=== PATIENT | female | born 1990 | race Caucasian/White ===

== ENCOUNTER → 2017-09-11 | Outpatient (CLI) | payer MEDICAID ==
[~2017-09-11] MED LIST: HYDR-3812 PO; IBUP-1773 PO
--- NOTE | 2017-09-11 12:08 | Diagnostic Imaging Report ---
INDICATION: Initial ultrasound for dates and anatomy. TECHNIQUE: Multiple real-time grayscale images were obtained over the gravid uterus. COMPARISON: None FINDINGS: There is a single live intrauterine fetus. Currently breech presentation. Placenta anterior and not low. Amniotic fluid index is normal. heart rate 153 beats per minute. anatomical survey is limited as the spine is not well demonstrated nor is the umbilical cord insertion well demonstrated. Other anatomical features appear normal. Biometrical measurements are as follows: Biparietal 5.56 cm, age 23 weeks 0 days. Head circumference 20.75 cm, age 22 weeks 6 days. Abdominal circumference 16.71 cm, age 21 weeks 6 days. Femur length 3.75 cm, age 22 weeks 0 days. Sonographic estimate age: 22 weeks 3 days. Sonographic estimated date of delivery: 01-12-18. Estimated Weight: 466 gm (+/- 68 gm). LMP percentile: 18%. heart rate: 153 beats per minute. number: 1 of 1. IMPRESSION: 1. There is a 22-week 3-day live intrauterine by current sonographic measurements. Sonographic EDC of 01/12/2018. 2. Slightly limited anatomical survey. spine and umbilical cord insertion not well demonstrated. 3. Estimated weight is in the 18th percentile. Dictated by: Dictated on workstation # [id number]
== END ==
LOC: RAD 10:07
PROVIDERS: ATTEND Family Medicine
DX: Z34.92 Encounter for supervision of normal pregnancy, unspecified, second trimester (principal); Z3A.22 22 weeks gestation of pregnancy
CPT/HCPCS: 76805

== ENCOUNTER → 2017-10-23 | Outpatient (CLI) | payer MEDICAID ==
[~2017-10-23] MED LIST changes: +ACHD5005 PO; -HYDR-3812 PO
--- NOTE | 2017-10-23 13:24 | Diagnostic Imaging Report ---
INDICATION: Follow-up cord insertion and spine. TECHNIQUE: Multiple real-time grayscale images were obtained over the gravid uterus. COMPARISON: 09/11/2017. FINDINGS: The previous OB ultrasound exam performed on 09/11/2017 noted a single live fetus of approximately 22 weeks 3 days gestation +/- 2 weeks. There are no abnormalities identified, but the spine and umbilical cord insertion were not well imaged. On this study, the fetus is again visualized. The fetus is cephalic in presentation and heart motion is noted with a rate of 142 bpm recorded. The cord insertion is identified on this exam and it appears to be within normal limits; however, the spine is difficult to evaluate due to the position. I would recommend that a short-term (2-4 weeks) follow-up exam be performed for a more sensitive evaluation of the spine. No other abnormality is identified. The growth parameters are not obtained for this exam. The placenta is anterior and there is no previa. The amniotic fluid volume is 10.1 cm (normal 8-22 cm). IMPRESSION: 1. There is a single live fetus of approximately 28 weeks 3 days gestation +/- 2 weeks. The EDC remains 01/12/2018. 2. There are no abnormalities identified, but the spine is still not optimally imaged. Recommendations as above. Dictated by: Dictated on workstation # [id number]
== END ==
LOC: RAD 09:30
PROVIDERS: ATTEND Family Medicine
DX: O43.123 Velamentous insertion of umbilical cord, third trimester (principal); Z3A.28 28 weeks gestation of pregnancy
CPT/HCPCS: 76816

== ENCOUNTER 2018-01-07 05:41 | Inpatient (IN) | payer MEDICAID ==
[2018-01-07] VITALS (35 sets, daily range): BP systolic 91–138; BP diastolic 52–80
[~2018-01-07] VITALS: Ht 154.9 cm; Wt 66.7 kg
[2018-01-07] MEDS ORDERED: D5 LR IV SOLUTION 1,000 ML IV SCH (05:54)
[2018-01-07] MEDS ORDERED: CATHETER FLUSH 10 ML SYR IV SCH (06:00)
[2018-01-07] MEDS ORDERED: MINERAL OIL CONCENTRATE 99.9% 15 ML UDC TOP PRN (06:00)
[2018-01-07 07:05] LABS: BASOPHILS % (AUTO) 0 % (0-10); EOSINOPHILS # (AUTO) 0.1 10^3/uL (0.0-0.3); EOSINOPHILS % (AUTO) 1 % (0-10); HEMATOCRIT 34 % (35-52); HEMOGLOBIN 11.5 G/DL (11.5-16.0); LYMPHOCYTES # (AUTO) 2.7 X 10^3 (1.0-4.0); LYMPHOCYTES % (AUTO) 31 % (12-44); MEAN CORPUSCULAR HEMOGLOBIN 31 PG (25-34); MEAN CORPUSCULAR HGB CONC 34 G/DL (32-36); MEAN CORPUSCULAR VOLUME 91 FL (80-99); MEAN PLATELET VOLUME 10.5 FL (7.4-10.4); MONOCYTES # (AUTO) 1.2 X 10^3 (0.0-1.0); MONOCYTES % (AUTO) 13 % (0-12); NEUTROPHILS # (AUTO) 4.8 X 10^3 (1.8-7.8); NEUTROPHILS % (AUTO) 55 % (42-75); PLATELET COUNT 268 10^3/uL (130-400); RED BLOOD COUNT 3.75 10^6/uL (4.35-5.85); RED CELL DISTRIBUTION WIDTH 13.6 % (10.0-14.5); WHITE BLOOD COUNT 8.8 10^3/uL (4.3-11.0)
[2018-01-07] MEDS ORDERED: OXYTOCIN/NORMAL SALINE 500 ML IV SCH ×2 (07:18→16:22)
--- NOTE | 2018-01-07 07:23 | History & Physical-OB ---
OB - Chief Complaint & HPI Date/Time Date of Admission: Date of Admission: Jan 07, 2018 at 05:41 Time Seen by Provider: 07:10 Chief Complaint/History OB-Reason for Admission/Chief: Induction of Labor Hx : 3 Hx Para: 2 Expected Date of Delivery: Jan 12, 2018 Gestational Age in Weeks: 39 Gestational Age in Days: 2 Admission Nurse Assessment Rev: Yes History of Labs GBS negative Allergies and Home Medications Allergies Coded Allergies: No Known Drug Allergies (Verified Allergy, Unknown, 07/12/08) Home Medications Hydrocodone Bit/Acetaminophen 1 Each Tablet, 1-2 TAB PO Q4H PRN for PAIN Prescribed by: MECHE FRITZ on 12/25/15 0742 Ibuprofen 600 Mg Tablet, 600 MG PO Q6H Prescribed by: MECHE FRITZ on 12/25/15 0742 Patient Home Medication List Home Medication List Reviewed: Yes OB - History Hx of Present Care: Yes Ultrasounds: Normal mid trimester US Obstetrical Complications: None Medical Complications: None Obstetrical History Hx Termination: No Hx Multiple Gestation: No Hx Stillbirth: No Hx Complication: No Hx Induced Hypertens: No Hx Maternal Gestational Diabet: No Delivery History Hx Dystocia: No Hx Large For Gestational Age I: No Hx Small for Gestational Age I: No Hx Section: No Hx Vaginal Delivery Post C-Sec: No Hx Blood Disorders: No Adverse Rxn to Tranfusion: No Patient Past Medical History No chronic medical problems Immunizations Tetanus Booster (TDap): Unknown OB - Admission Exam Physical Exam HEENT: Moist Membranes Heart: Rhythm Normal Lungs: Clear Abdomen: Gravid Reflexes: Normal Cervical Dilatation: 2cm Effacement: 50% Station: -3 Membranes: Intact Heart Rate: 140's Accelerations: Accelerations Present Decelerations: No Decelerations Short Term Variability: Present Vp Client Services Variability: Average (6-25) Contractions on Admission: >10 Minutes Apart Intensity: Mild Velasco Scoring Tool (Modified) Dilation (cm): 1-2cm (1) Effacement (%): 31-51% (1) Descent/Station: -3 (0) Cervix Consistency: Soft (2) Cervix Position: Posterior (0) Add 1 point for: Each previous vaginal delivery (1) Velasco Score: 6 Labs Laboratory Tests Test 01/07/18 06:45 Range/Units White Blood Count 8.8 4.3-11.0 10^3/uL Red Blood Count 3.75 L 4.35-5.85 10^6/uL Hemoglobin 11.5 11.5-16.0 G/DL Hematocrit 34 L 35-52 % Mean Corpuscular Volume 91 80-99 FL Mean Corpuscular Hemoglobin 31 25-34 PG Mean Corpuscular Hemoglobin Concent 34 32-36 G/DL Red Cell Distribution Width 13.6 10.0-14.5 % Platelet Count 268 130-400 10^3/uL Mean Platelet Volume 10.5 H 7.4-10.4 FL Neutrophils (%) (Auto) 55 42-75 % Lymphocytes (%) (Auto) 31 12-44 % Monocytes (%) (Auto) 13 H 0-12 % Eosinophils (%) (Auto) 1 0-10 % Basophils (%) (Auto) 0 0-10 % Neutrophils # (Auto) 4.8 1.8-7.8 X 10^3 Lymphocytes # (Auto) 2.7 1.0-4.0 X 10^3 Monocytes # (Auto) 1.2 H 0.0-1.0 X 10^3 Eosinophils # (Auto) 0.1 0.0-0.3 10^3/uL Basophils # (Auto) 0.0 0.0-0.1 10^3/uL OB - Assessment/Plan/Diagnosis Assessment Assessment: induction of labor Admission Dx 1. IUP at 39wks Admission Status: Inpatient Order (span 2 midnights) Reason for Inpatient Admission: Labor and delivery Plan Plan: Induction Induction Method: AROM Other Plan -no epidural desired- -Stadol for pain control MECHE FRITZ MD Jan 07, 2018 07:23
[2018-01-07] MEDS: BUTORPHANOL INJ 2 MG/ML (STADOL) VIAL IV PRN ×2 (12:40→14:59)
--- NOTE | 2018-01-07 16:26 | OB Labor & Delivery Record ---
L&D History Date of Service Date of Service: Jan 07, 2018 History Expected Date of Delivery: Jan 12, 2018 Gestational Age in Weeks: 39 Hx : 3 Hx Para: 3 Complications Events: Routine care Operative Indications (Cesarea: N/A-Vaginal Delivery Intrapartal Events: None L&D Stage1 Stage One Onset of Labor - Date: Jan 07, 2018 Onset of Labor - Time: 07:10 Monitors and Tracing Monitor Mode: Internal Heart Rate: 130 Monitor Accelerations: Uniform Monitor Decelerations: Variable Station: -2 Fci Variability: Average (6-10) Short Term Variability: Present Presentation: Vertex Vital Signs VS - Last 72 Hours, by Label 01/07/18 01/07/18 01/07/18 01/07/18 06:18 07:22 08:45 09:00 Temp 97.6 97.8 Pulse 85 74 74 75 Resp 18 18 18 18 B/P (MAP) 107/64 (78) 105/66 (79) 101/61 (74) 101/64 (76) O2 Delivery Room Air Room Air Room Air Room Air 01/07/18 01/07/18 01/07/18 01/07/18 09:15 09:30 09:45 10:00 Pulse 81 84 77 86 Resp 18 18 18 18 B/P (MAP) 103/64 (77) 107/78 (88) 110/68 (82) 102/64 (77) O2 Delivery Room Air Room Air Room Air Room Air 01/07/18 01/07/18 01/07/18 01/07/18 10:15 10:30 10:45 11:00 Temp 98.3 Pulse 86 77 79 79 Resp 18 18 18 18 B/P (MAP) 106/64 (78) 106/63 (77) 94/60 (71) 91/52 (65) O2 Delivery Room Air Room Air Room Air Room Air 01/07/18 01/07/18 01/07/18 01/07/18 11:15 11:30 11:45 12:00 Temp 98.1 Pulse 73 76 75 77 Resp 18 18 18 18 B/P (MAP) 105/57 (73) 102/64 (77) 102/66 (78) 100/57 (71) O2 Delivery Room Air Room Air Room Air Room Air 401/07/18 01/07/18 01/07/18 12:15 12:30 12:45 13:00 Pulse 74 71 74 72 Resp 18 18 B/P (MAP) 101/59 (73) 105/58 (74) 99/54 (69) 97/52 (67) O2 Delivery Room Air Room Air Room Air Room Air Signs of Distress by FHT Signs of Distress no Rupture of Membranes Spontaneous Ruture of Membrane: No Amniotic Membrane Rupture Time: 0710 Amniotic Membrane Fluid Desc.: Clear Induction/Anesthesia Medications Stadol x2 L&D Stage2 Stage Two Stage II Date: Jan 07, 2018 Stage II Time: 16:00 Monitors and Tracing Monitor Mode: Internal Heart Rate: 130 Monitor Accelerations: Uniform Monitor Decelerations: Variable [employer]ivist [employer] History Variability: Average (6-10) Position: Left Occiput Anterior Presentation: Vertex Signs of Distress by FHT Signs of Distress no Cord Descript/Complications Cord Vessel Description: 3 Vessels Delivery Type Infant Delivery Method: Spontaneous Vaginal Anterior Shoulder: Left Episiotomy/Perineal Laceration Laceraction(s)/Extensions: No Condition of Delivery 1 minute Comment: 8 5 minute Comment: 9 Condition of Condition of Infant: Living Exam: No Observed Abnormalities Resuscitation Resuscitation: N/A - Spontaneous Resp L&D Stage3 Stage Three Stage III Date: Jan 07, 2018 Stage III Time: 16:04 Pictocin Pitocin Administration mu/min: 8 Pitocin ml/hr: 8 Pitocin Administration Comment: Pitocin started at 2 mu/min per order Placenta Delivery Placenta Delivery: Spontaneous Delivery Summary Summary Estimated blood loss (mL): 150 Condition of Delivery Examined: Cervix Examined Post Hemorrhage: No Intervention Required none MECHE FRITZ MD Jan 07, 2018 16:25
[2018-01-07] MEDS ORDERED: BENZOCAINE/MENTHOL (DERMOPLAST) 56 ML CAN TP PRN (16:30)
[2018-01-07] MEDS ORDERED: WITCH HAZEL(TUCKS) 40 EA JAR TOP PRN (16:30)
[2018-01-07] MEDS ORDERED: MEASLES,MUMPS,RUBELLA 1 EA INJ SQ ONE (16:30)
[2018-01-07] MEDS ORDERED: TETANUS,DIPTH,PERTUSS P/F (BOOSTRIX) 0.5 ML VIAL IM ONE (16:30)
[2018-01-07] MEDS ORDERED: IBUPROFEN 600 MG (MOTRIN) TAB PO ONE (18:32)
[2018-01-07] MEDS: IBUPROFEN 600 MG (MOTRIN) TAB PO SCH (18:36)
[2018-01-07] MEDS: CATHETER FLUSH 10 ML SYR IV SCH (22:02)
[2018-01-08] MEDS ORDERED: IBUPROFEN 600 MG (MOTRIN) TAB PO ONE ×2 (00:22→05:32)
[2018-01-08] MEDS: IBUPROFEN 600 MG (MOTRIN) TAB PO SCH ×4 (00:29→17:13)
[2018-01-08 04:20] VITALS: BP 94/62
[2018-01-08] MEDS: CATHETER FLUSH 10 ML SYR IV SCH ×2 (05:35→12:42)
[2018-01-08 05:43] LABS: BASOPHILS % (AUTO) 0 % (0-10); EOSINOPHILS # (AUTO) 0.1 10^3/uL (0.0-0.3); EOSINOPHILS % (AUTO) 0 % (0-10); HEMATOCRIT 33 % (35-52); HEMOGLOBIN 10.9 G/DL (11.5-16.0); LYMPHOCYTES % (AUTO) 18 % (12-44); MEAN CORPUSCULAR HEMOGLOBIN 30 PG (25-34); MEAN CORPUSCULAR HGB CONC 34 G/DL (32-36); MEAN CORPUSCULAR VOLUME 91 FL (80-99); MEAN PLATELET VOLUME 10.7 FL (7.4-10.4); MONOCYTES # (AUTO) 2.1 X 10^3 (0.0-1.0); MONOCYTES % (AUTO) 13 % (0-12); NEUTROPHILS # (AUTO) 11.4 X 10^3 (1.8-7.8); NEUTROPHILS % (AUTO) 69 % (42-75); PLATELET COUNT 269 10^3/uL (130-400); RED BLOOD COUNT 3.59 10^6/uL (4.35-5.85); RED CELL DISTRIBUTION WIDTH 13.5 % (10.0-14.5); WHITE BLOOD COUNT 16.6 10^3/uL (4.3-11.0)
[2018-01-08] MEDS ORDERED: PRENATAL VITAMIN 1 EA TAB PO SCH (07:00)
[2018-01-08 08:00] VITALS: BP 98/64
[2018-01-08 12:00] VITALS: BP 97/54
[2018-01-08 16:00] VITALS: BP 98/54
--- NOTE | 2018-01-08 16:41 | Discharge Summary ---
Diagnosis/Chief Complaint Date of Admission Jan 07, 2018 at 05:41 Date of Discharge January 08, 2018 Discharge Date: Jan 08, 2018 Discharge Time: 17:00 Admission Diagnosis Admission Diagnosis 1. IUP at 39 weeks gestation Discharge Diagnosis 1. IUP at 39 weeks gestation Reason Hospital Visit 27 yo G3T3 admitted for induction of labor January 07, 2018 at 39w2d gestation. Her EDC is January 12, 2018. GBS status negative. Discharge Summary-OBS Procedures 1. Spontaneous vaginal delivery Discharge Physical Examination Allergies: Coded Allergies: No Known Drug Allergies (Verified Allergy, Unknown, 07/12/08) Vitals & I&Os Vital Signs Date Time Temp Pulse Resp B/P (MAP) Pulse Ox O2 Delivery O2 Flow Rate FiO2 01/08/18 16:00 98.1 78 16 98/54 (69) 99 Room Air General Appearance: No Acute Distress Respiratory: Clear to Auscultation Cardiovascular: Regular Rate Abdominal: Soft (with uterus firm) Hospital Course Patient underwent AROM in the am of January 07, 2018. scalp electrode was placed. She did not require epidural. She did receive Stadol for pain management during the course of labor. She ultimately required Pitocin augmentation. She went on eventually to deliver a term viable female at 1600 on January 07, 2018. Infant received Apgars of 8 at 1 minute and 9 at 5 minutes. Patient underwent routine care orders. She had no complications. She tolerated regular diet. She was ambulatory and did not develop any chest pain or shortness of breath. There was no leg swelling or leg tenderness. Her initial hemoglobin on admission was 11.5 and the day after delivery was 10.9. Patient was felt ready for dismissal after 24 hours and she was released to home during the p.m. of January 08, 2018. All questions answered. Discharge Instructions to patient/family Please see electronic discharge instructions given to patient. Discharge Medications Reviewed and agree with Discharge Medication list on patient's Discharge Instruction sheet Clinical Quality Measures DVT/VTE Risk/Contraindication: Risk Factor Score Per Nursin RFS Level Per Nursing on Admit: 1=Low/No VTE PPX MECHE FRITZ MD Jan 08, 2018 16:41
--- NOTE | 2018-01-08 16:43 | Discharge Inst-Women's Service ---
Discharge Inst-Women's Serv Consults/Follow Up Additional Follow Up: Yes (Dr Fritz in 6 weeks.) Activity Activity: Activity as Tolerated Driving Instructions: You May Drive Nothing Inside Vagina: No [place] (for 4 weeks.) Diet Discharge Diet: Regular Diet Return to The Hospital For: as below Symptoms to Report to : Bleeding Excessive, Pain Increased, Fever Over 101 Degrees F, Vaginal Bleeding Increase, Vaginal Discharge Foul For Any Problems or Questions: Contact Your Physician MECHE FRITZ MD Jan 08, 2018 16:43
== END 2018-01-08 19:03 | disposition home or self-care (01) | DRG 775 ==
LOC: LDRP 05:41 → 3RD 12:27 → LDRP 12:27
PROVIDERS: ADMIT Family Medicine; ATTEND Family Medicine
PROC: 10E0XZZ Delivery of Products of Conception, External Approach (ICD-10-PCS; principal; 2018-01-07)
PROC: 10907ZC Drainage of Amniotic Fluid, Therapeutic from Products of Conception, Via Natural or Artificial Opening (ICD-10-PCS; 2018-01-07)
DX: O80 Encounter for full-term uncomplicated delivery (principal); Z3A.39 39 weeks gestation of pregnancy; Z37.0 Single live birth
CPT/HCPCS: 36415; 85025; 86850; 86900; 86901

== ENCOUNTER → 2019-08-17 | Outpatient (CLI) | payer MEDICAID ==
--- NOTE | 2019-08-17 17:06 | Diagnostic Imaging Report ---
PROCEDURE: US OB single fetus <14 wks. TECHNIQUE: Multiple real-time grayscale images were obtained over the gravid uterus in various projections. INDICATION: Assessment of dating. FINDINGS: There is a estrada intrauterine gestation present. pole is present with crown-rump length of 2 cm. Embryonic cardiac activity is present with a rate of 179 bpm. There is minimal ana-gestational fluid which could represent implantation bleed. Gestational sac morphology is unremarkable. No maternal adnexal region abnormality is identified. IMPRESSION: 1. Intrauterine gestation with estimated age of 8 weeks and 5 days indicating sonographic EDC of 03/23/2020. 2. cardiac activity is present with a rate of 179 bpm without significant complication identified. Dictated by: Dictated on workstation # [id number]
== END ==
LOC: RAD 15:11
PROVIDERS: ATTEND Family Medicine
DX: Z34.91 Encounter for supervision of normal pregnancy, unspecified, first trimester (principal); Z3A.08 8 weeks gestation of pregnancy
CPT/HCPCS: 76801

== ENCOUNTER → 2019-11-07 | Outpatient (CLI) | payer MEDICAID ==
--- NOTE | 2019-11-07 17:12 | Diagnostic Imaging Report ---
INDICATION: , anatomic survey. TECHNIQUE: Multiple real-time grayscale images were obtained over the gravid uterus. COMPARISON: 08/17/2019. FINDINGS: There is a single live intrauterine gestation in cephalic presentation. Cervix measures 4.1 cm in length with no evidence of funneling. The placenta is posterior without evidence of previa. Biometric measurements are given below. The maternal adnexa are not seen. The face is seen and the nose and lips are seen. The cerebellum and lateral ventricles are seen. The upper and lower spine is seen. The diaphragm is seen. A four-chamber heart is seen. The stomach is seen. Cord insertion is seen. Kidneys are seen. Bladder is seen. Bilateral lower extremities are seen. A three-vessel cord is seen. The bilateral upper extremities are seen. heart rate measures 146 BPM. The amniotic fluid is subjectively normal. Biometrical measurements are as follows: Biparietal 4.71 cm, age 20 weeks 2 days. Head circumference 17.99 cm, age 20 weeks 3 days. Abdominal circumference 15.75 cm, age 21 weeks 0 days. Femur length 3.44 cm, age 20 weeks 6 days. Sonographic estimate age: 20 weeks 5 days. Sonographic estimated date of delivery: 03/21/2020. Estimated Weight: 378 gm (+/- 55 gm). LMP percentile: 66%. heart rate: 146 beats per minute. number: 1 of 1. IMPRESSION: 1. Single live intrauterine gestation measuring at 20 weeks and 5 days which is within range of the clinical dates. 2. Anatomic survey, as described above. No abnormalities are identified. Dictated by: Dictated on workstation # [id number]
== END ==
LOC: RAD 09:45
PROVIDERS: ATTEND Family Medicine
DX: Z34.92 Encounter for supervision of normal pregnancy, unspecified, second trimester (principal); Z3A.20 20 weeks gestation of pregnancy
CPT/HCPCS: 76805

== ENCOUNTER 2020-03-19 06:00 | Inpatient (IN) | payer MEDICAID ==
[2020-03-19] VITALS (35 sets, daily range): BP systolic 81–133; BP diastolic 48–81
[~2020-03-19] VITALS: Ht 154.9 cm; Wt 70.4 kg
[~2020-03-19 06:00] MED LIST changes: +D5 LR IV SOLUTION 1,000 ML IV ONE
[2020-03-19] MEDS ORDERED: D5 LR IV SOLUTION 1,000 ML IV SCH (06:04)
--- NOTE | 2020-03-19 06:07 | NUR ---
SURINDER LIGHT presented to unit via ambulation from ED, accompanied by s.o. for induction of labor. SURINDER LIGHT weighed, gowned, voided, and to bed. EFHM and TOCO applied, VS taken. SURINDER LIGHT oriented to bed controls, call light, TV, heat, and A/C controls.
--- OUTSIDE RECORDS SUMMARY | 2020-03-19 06:17 | XMS REPORT ---
Author Author Leanne Contreras Doctor Organization [facility] Address Unknown Phone Unavailable Care Team Providers Care Clean Room Assembler Name Role Phone Migration, Doctor Unavailable Unavailable PROBLEMS Type Condition ICD9-CM Code IRL93-BS Code Onset Dates Condition S tatus SNOMED Code Problem Urinary tract infection, site not specified 599.0 Active 10967230 Problem Acute maxillary sinusitis 461.0 Acti ve 46126594 Problem Contact with or exposure to venereal diseases V01.6 Active 216310403 Problem Abdominal pain, unspecified site 789.00 Active 01092540 Problem Diarrhea 787.91 Active [id number] ALLERGIES No Information ENCOUNTERS Encounter Location Date Diagnosis [facility] [id number] [place] [id number] Apr, [facility] [id number] [place] [address], [place] [id number] Mar, Chlamydia contact Z20.2 and Acute vagini tis N76.0 [facility] [id number] [place] [address], [place] [id number] Jan, Sore throat J02.9 and Fever, unspecified fever cause R50.9 [facility] [id number] [place] [id number] Jan, [facility] [address] [facility] [id number] [address] [place] [phone] Jan, [facility] [id number] [place] [id number] Dec, [facility] [id number] [place] [phone] Dec, [facility] [id number] [place] [id number] Nov, [facility] [id number] [place] [phone] Nov, [facility] [address] [facility] [id number] [address] [place] [phone] Jul, [facility] [address] [facility] [id number] [place], [place] [id number] Jun, [facility] [address] [facility] [id number] [address] [place] [phone] Jun, [facility] [address] [facility] [id number] [address] [place] [phone] Apr, [facility] [address] [facility] [id number] [address] [place] [phone] Apr, [facility] [address] [facility] [address] [id number] [place], [place] [id number] Apr, [facility] [address] [facility] [id number] [place], [place] [id number] Apr, [facility] [address] [facility] [id number] [address] [place] [phone] Apr, [facility] [address] [facility] [id number] [address] [place] [phone] Apr, IMMUNIZATIONS No Known Immunizations SOCIAL HISTORY Never Assessed REASON FOR VISIT [facility] PLAN OF CARE VITAL SIGNS MEDICATIONS Unknown Medications RESULTS No Results PROCEDURES No Known procedures INSTRUCTIONS MEDICATIONS ADMINISTERED No Known Medications MEDICAL (GENERAL) HISTORY Type Description Date Surgical History BMT
--- OUTSIDE RECORDS SUMMARY | 2020-03-19 06:17 | XMS REPORT ---
Author Author Leanne Wells [facility] Address [address] [place] [address] Care Team Providers Care Candy Decorator Name Role Phone EDUIN Wells Unavailable PROBLEMS Type Condition ICD9-CM Code VYP78-AR Code Onset Dates Condition S tatus SNOMED Code Problem Urinary tract infection, site not specified 599.0 Active 47506733 Problem Acute maxillary sinusitis 461.0 Acti ve 16256111 Problem Contact with or exposure to venereal diseases V01.6 Active 954161518 Problem Abdominal pain, unspecified site 789.00 Active 10342434 Problem Diarrhea 787.91 Active 60956089 ALLERGIES No Information ENCOUNTERS Encounter Location Date Diagnosis [facility] [id number] [place] [address], [place] [id number] Apr, [place] [id number] [place] [address], [place] [id number] Mar, Chlamydia contact Z20.2 and Acute vagini tis N76.0 [facility] [id number] [place] [address], [place] [id number] Jan, Sore throat J02.9 and Fever, unspecified fever cause R50.9 [facility] [address] [facility] [id number] [address] [place] [phone] Jan, [facility] [address] [facility] [id number] [address] [place] [phone] Jan, [place] [place] [id number] [place] [address], [place] [id number] Dec, [facility] [address] [facility] [id number] [address] [place] [phone] Dec, [facility] [address] [id number] [place] [id number] Nov, [facility] [address] [id number] [address] [place] [phone] Nov, [facility] [address] [id number] [address] [place] [phone] Jul, [facility] [address] [id number] [place] [id number] Jun, [facility] [address] [id number] [address] [place] [phone] Jun, [facility] [address] [id number] [address] [place] [phone] Apr, [facility] [address] [id number] [address] [place] [phone] Apr, [facility] [address] [id number] [place] [id number] Apr, [facility] [address] [id number] [place] [id number] Apr, [facility] [address] [id number] [address] [place] [phone] Apr, [facility] [address] [id number] [address] [place] [phone] Apr, IMMUNIZATIONS No Known Immunizations SOCIAL HISTORY Never Assessed REASON FOR VISIT PLAN OF CARE VITAL SIGNS Height 62 in 2014-07-03 Weight 125.4 lbs 2014-07-03 Temperature 125.4 degrees Fahrenheit 2014-07-03 Heart Rate 70 bpm 2014-07-03 Respiratory Rate 12 2014-07-03 Blood pressure systolic 102 mmHg 2014-07-03 Blood pressure diastolic 60 mmHg 2014-07-03 MEDICATIONS Unknown Medications RESULTS No Results PROCEDURES Procedure Date Ordered Result Body Site URINE CULTURE/COLONY COUNT Jul 03, 2014 URINALYSIS, AUTO, W/O SCOPE Jul 03, 2014 INSTRUCTIONS MEDICATIONS ADMINISTERED No Known Medications MEDICAL (GENERAL) HISTORY Type Description Date Surgical History BMT
--- OUTSIDE RECORDS SUMMARY | 2020-03-19 06:17 | XMS REPORT ---
Author Author Leanne Wells [facility] Address [address] [place] [address] Care Team Providers Care Resist Coater Developer Name Role Phone EDUIN Wells Unavailable PROBLEMS Type Condition ICD9-CM Code RHX43-BR Code Onset Dates Condition S tatus SNOMED Code Problem Urinary tract infection, site not specified 599.0 Active 39339474 Problem Acute maxillary sinusitis 461.0 Acti ve 04007004 Problem Contact with or exposure to venereal diseases V01.6 Active 504468737 Problem Abdominal pain, unspecified site 789.00 Active 40195423 Problem Diarrhea 787.91 Active [id number] ALLERGIES No Information ENCOUNTERS Encounter Location Date Diagnosis [place] [address] [phone] Aug, [place] [address] [phone] Jul, [facility] [id number] [place] [address], [place] [id number] Apr, [place] [id number] [place] [address], [place] [id number] Mar, Chlamydia contact Z20.2 and Acute vagini tis N76.0 [facility] [address] [id number] [place] [address], [place] [id number] Jan, Sore throat J02.9 and Fever, unspecified fever cause R50.9 [place] [address] [place] [id number] [place] [phone] 14 Jan, 2015 [place] [address] [place] [id number] [place] [phone] Jan, [address], [place] [id number] Dec, [facility] [address] [id number] [address] [place] [phone] Dec, [facility] [address] [id number] [place] [id number] Nov, [facility] [address] [id number] [address] [place] [phone] Nov, [facility] [address] [id number] [address] [place] [phone] Jul, [facility] [address] [id number] [place] [phone] Jun, [facility] [address] [id number] [address] [place] [phone] Jun, [facility] [address] [facility] [id number] [address] [place] [phone] Apr, [facility] [address] [facility] [id number] [address] [place] [phone] Apr, [facility] [address] [id number] [place] [id number] Apr, [facility] [address] [id number] [place] [id number] Apr, [facility] [address] [facility] [id number] [address] [place] [phone] Apr, [facility] [address] [facility] [id number] [address] [place] [phone] Apr, IMMUNIZATIONS No Known Immunizations SOCIAL HISTORY Never Assessed REASON FOR VISIT PLAN OF CARE VITAL SIGNS Height 62 in 2014-04-10 Weight 126 lbs 2014-04-10 Temperature 98.6 degrees Fahrenheit 2014-04-10 Heart Rate 80 bpm 2014-04-10 Respiratory Rate 12 2014-04-10 Blood pressure systolic 102 mmHg 2014-04-10 Blood pressure diastolic 60 mmHg 2014-04-10 MEDICATIONS Unknown Medications RESULTS No Results PROCEDURES Procedure Date Ordered Result Body Site CHYLMD TRACH, DNA, AMP PROBE April 10, 2014 IMMUNOASSAY,INFECTIOUS AGENT April 10, 2014 INSTRUCTIONS MEDICATIONS ADMINISTERED No Known Medications MEDICAL (GENERAL) HISTORY Type Description Date Surgical History BMT
--- OUTSIDE RECORDS SUMMARY | 2020-03-19 06:17 | XMS REPORT | Continuity of Care Document ---
Author Organization Unknown Address Unknown Phone Unavailable Allergies Active Description Code Type Severity Reaction Onset Reported/Identified Relationship to Patient Clinical Status Yes No Known Drug Allergies [id number] Drug Allergy Unknown N/A 07/12/2008 Medications There is no data. Problems Date Dx Coded Attending Type Code Diagnosis Diagnosed By 04/10/2014 BARRERA BROWN DO 787.91 DIARRHEA 04/10/2014 BARRERA BROWN DO 789.00 ABDOMINAL PAIN UNSPECIFIED SITE 04/10/2014 BARRERA BROWN DO V01.6 CONTACT WITH OR EXPOSURE TO VENEREAL DISEASES 04/10/2014 BARRERA BROWN DO K 787.91 DIARRHEA 04/10/2014 BARRERA BROWN DO 789.00 ABDOMINAL PAIN UNSPECIFIED SITE 04/10/2014 BARRERA BROWN DO V01.6 CONTACT WITH OR EXPOSURE TO VENEREAL DISEASES 07/03/2014 BARRERA BROWN DO K 599.0 URINARY TRACT INFECTION SITE NOT SPECIFIED 10/26/2015 MECHE FRITZ MD, Ot Z34. 90 10/26/2015 MECHE FRITZ MD, Ot Z34. 90 10/26/2015 MECHE FRITZ MD Ot Z36 10/26/2015 MECHE FRITZ MD Ot Z36 11/09/2015 MECHE FRITZ MD Ot Z36 11/16/2015 MECHE FRITZ MD Ot Z34. 90 12/24/2015 MECHE FRITZ MD, Ot Z34. 90 12/24/2015 MECHE FRITZ MD Ot Z36 12/25/2015 MECHE FRITZ MD Ot O71. 82 OTHER SPECIFIED TRAUMA TO PERINEUM AND V 12/25/2015 MECHE FRITZ MD Ot Z37. 0 SINGLE LIVE 12/25/2015 LAM SILVERMAN, MECHE Myles Ot Z3A. 39 39 WEEKS GESTATION OF 09/11/2017 MECHE FRITZ MD, Ot Z34. 90 ENCNTR FOR SUPRVSN OF NORMAL , 09/11/2017 MECHE FRITZ MD Ot Z36 ENCOUNTER FOR SCREENING OF MOT 09/14/2017 MECHE FRITZ MD, Ot Z34. 92 ENCNTR FOR SUPRVSN OF NORMAL PREG, UNSP, 09/14/2017 MECHE FRITZ MD Ot Z3A. 22 22 WEEKS GESTATION OF 09/29/2017 MECHE FRITZ MD, Ot Z34. 92 ENCNTR FOR SUPRVSN OF NORMAL PREG, UNSP, 09/29/2017 MECHE FRITZ MD Ot Z3A. 22 22 WEEKS GESTATION OF 10/23/2017 MECHE FRITZ MD Ot Z34. 90 ENCNTR FOR SUPRVSN OF NORMAL , 10/23/2017 MECHE FRITZ MD Ot Z36 ENCOUNTER FOR SCREENING OF MOT 10/23/2017 MECHE FRITZ MD, Ot Z34. 92 ENCNTR FOR SUPRVSN OF NORMAL PREG, UNSP, 10/23/2017 MECHE FRITZ MD Ot Z3A. 22 22 WEEKS GESTATION OF 10/26/2017 MECHE FRITZ MD Ot O43.123 VELAMENTOUS INSERTION OF UMBILICAL CORD, 10/26/2017 MECHE FRITZ MD, Ot Z3A. 28 28 WEEKS GESTATION OF 11/06/2017 MECHE FRITZ MD Ot O43.123 VELAMENTOUS INSERTION OF UMBILICAL CORD, 11/06/2017 MECHE FRITZ MD Ot Z3A. 28 28 WEEKS GESTATION OF 01/07/2018 MECHE FRITZ MD Ot Z34. 90 ENCNTR FOR SUPRVSN OF NORMAL , 01/07/2018 MECHE FRITZ MD Ot Z36 ENCOUNTER FOR SCREENING OF MOT 01/07/2018 MECHE FRITZ MD Ot Z34. 92 ENCNTR FOR SUPRVSN OF NORMAL PREG, UNSP, 01/07/2018 MECHE FRITZ MD Ot Z3A. 22 22 WEEKS GESTATION OF 01/07/2018 MECHE FRITZ MD Ot O43.123 VELAMENTOUS INSERTION OF UMBILICAL CORD, 01/07/2018 MECHE FRITZ MD Ot Z3A. 28 28 WEEKS GESTATION OF 01/08/2018 MECHE FRITZ MD Ot O80 ENCOUNTER FOR FULL-TERM UNCOMPLICATED DE 01/08/2018 MECHE FRITZ MD, Ot Z37. 0 SINGLE LIVE 01/08/2018 MECHE FRITZ MD, Ot Z3A. 39 39 WEEKS GESTATION OF 08/17/2019 MECHE FRITZ MD, Ot Z34. 90 ENCNTR FOR SUPRVSN OF NORMAL , 08/17/2019 MECHE FRITZ MD, Ot Z36 ENCOUNTER FOR SCREENING OF MOT 08/17/2019 MECHE FRITZ MD, Ot Z34. 92 ENCNTR FOR SUPRVSN OF NORMAL PREG, UNSP, 08/17/2019 MECHE FRITZ MD, Ot Z3A. 22 22 WEEKS GESTATION OF 08/17/2019 MECHE FRITZ MD, Ot O43.123 VELAMENTOUS INSERTION OF UMBILICAL CORD, 08/17/2019 MECHE FRITZ MD, Ot Z3A. 28 28 WEEKS GESTATION OF 08/19/2019 MECHE FRITZ MD, Ot Z34. 91 ENCNTR FOR SUPRVSN OF NORMAL PREG, UNSP, 08/19/2019 MECHE FRITZ MD, Ot Z3A. 08 8 WEEKS GESTATION OF 10/10/2019 MECHE FRITZ MD, Ot Z34. 91 ENCNTR FOR SUPRVSN OF NORMAL PREG, UNSP, 10/10/2019 MECHE FRITZ MD, Ot Z3A. 08 8 WEEKS GESTATION OF 11/04/2019 MECHE FRITZ MD Ot Z34. 90 ENCNTR FOR SUPRVSN OF NORMAL , 11/04/2019 MECHE FRITZ MD Ot Z36 ENCOUNTER FOR SCREENING OF MOT 11/04/2019 MECHE FRITZ MD, Ot Z34. 92 ENCNTR FOR SUPRVSN OF NORMAL PREG, UNSP, 11/04/2019 MECHE FRITZ MD, Ot Z3A. 22 22 WEEKS GESTATION OF 11/04/2019 MECHE FRITZ MD, Ot O43.123 VELAMENTOUS INSERTION OF UMBILICAL CORD, 11/04/2019 MECHE FRITZ MD, Ot Z3A. 28 28 WEEKS GESTATION OF 11/04/2019 MECHE FRITZ MD, Ot Z34. 91 ENCNTR FOR SUPRVSN OF NORMAL PREG, UNSP, 11/04/2019 LAM SILVERMAN, MECHE Myles Ot Z3A. 08 8 WEEKS GESTATION OF Procedures Code Description [place] [address] H PY BOBBY (IN-HOUSE) 04/10/2014 45730 GC/C HLAM URINE (STATE) 04/10/2014 19098 UA L RICKY DIP 07/03/2014 58755 CULT URE URINE 07/03/2014 [id number] RE PAIR VULVA, EXTERNAL APPROACH 12/24/2015 15E2TAY DE LIVERY OF PRODUCTS OF CONCEPTION, EXTE 12/24/2015 [id number] IN TRODUCE OF OTH THERAP SUBST INTO FEM R 12/24/[address] KNOTT OF AMNIOTIC [place], THERAP FROM POC 01/07/2018 54K1BLR DE LIVERY OF PRODUCTS OF CONCEPTION, EXTE 01/07/2018 Results Test Result Range Complete blood count (CBC) with automate d white blood cell (WBC) differential - 01/07/18 06:45 Blood leukocytes automated count (number/volume) 8.8 10*3/uL 4.3-11.0 Blood erythrocytes automated count (number/volume) 3.75 10*6/uL 4.35-5.85 Venous blood hemoglobin measurement (mass/volume) 11.5 g/dL 11.5-16.0 Blood hematocrit (volume fraction) 34 % 35-52 Automated erythrocyte mean corpuscular volume 91 [ foz_us] 80-99 Automated erythrocyte mean corpuscular h emoglobin (mass per erythrocyte) 31 pg 25-34 Automated erythrocyte mean corpuscular h emoglobin concentration measurement (mass/volume) 34 g/dL 32-36 Automated erythrocyte distribution width ratio 13. 6 % 10.0- 14.5 Automated blood platelet count (count/volume) 268 10*3/uL 130-400 Automated blood platelet mean volume measurement 10.5 [foz_us] 7.4-10.4 Automated blood neutrophils/100 leukocytes 55 % 42-75 Automated blood lymphocytes/100 leukocytes 31 % 12-44 Blood monocytes/100 leukocytes 13 % 0-12 Automated blood eosinophils/100 leukocytes 1 % 0-10 Automated blood basophils/100 leukocytes 0 % 0-10 Blood neutrophils automated count (number/volume) 4.8 10*3 1.8-7.8 Blood lymphocytes automated count (number/volume) 2.7 10*3 1.0-4.0 Blood monocytes automated count (number/volume) 1. 2 10*3 0.0-1.0 Automated eosinophil count 0.1 10*3/uL 0 .0-0.3 Automated blood basophil count (count/volume) 0.0 10*3/uL 0.0-0.1 Blood type T Indirect antibody screen pa scottie - 01/07/18 06:45 ABO+Rh group AP NRG Transfusion band number [id number] NRG Blood group antibody screen NEGATIVE NR G Complete blood count (CBC) with automate d white blood cell (WBC) differential - 01/08/18 05:25 Blood leukocytes automated count (number/volume) 16.6 10*3/uL 4.3-11.0 Blood erythrocytes automated count (number/volume) 3.59 10*6/uL 4.35-5.85 Venous blood hemoglobin measurement (mass/volume) 10.9 g/dL 11.5-16.0 Blood hematocrit (volume fraction) 33 % 35-52 Automated erythrocyte mean corpuscular volume 91 [ foz_us] 80-99 Automated erythrocyte mean corpuscular h emoglobin (mass per erythrocyte) 30 pg 25-34 Automated erythrocyte mean corpuscular h emoglobin concentration measurement (mass/volume) 34 g/dL 32-36 Automated erythrocyte distribution width ratio 13. 5 % 10.0- 14.5 Automated blood platelet count (count/volume) 269 10*3/uL 130-400 Automated blood platelet mean volume measurement 10.7 [foz_us] 7.4-10.4 Automated blood neutrophils/100 leukocytes 69 % 42-75 Automated blood lymphocytes/100 leukocytes 18 % 12-44 Blood monocytes/100 leukocytes 13 % 0-12 Automated blood eosinophils/100 leukocytes 0 % 0-10 Automated blood basophils/100 leukocytes 0 % 0-10 Blood neutrophils automated count (number/volume) 11.4 10*3 1.8-7.8 Blood lymphocytes automated count (number/volume) 3.0 10*3 1.0-4.0 Blood monocytes automated count (number/volume) 2. 1 10*3 0.0-1.0 Automated eosinophil count 0.1 10*3/uL 0 .0-0.3 Automated blood basophil count (count/volume) 0.0 10*3/uL 0.0-0.1 Encounters ACCT No. Visit Date/Time Discharge Status Pt. Type Provider Facility Loc./Unit Complaint [id number] 07/03/2014 16:42:00 07/03/2014 23:59: 59 CLS Outpatient BARRERA BROWN DO [id number] 04/10/2014 12:22:00 04/10/2014 23:59: 59 CLS Outpatient BARRERA BROWN DO [id number] 11/07/2019 09:45:00 020 23:59:59 CLS Outpatient MECHE FRITZ MD Via [facility] RAD SURVEY [id number] 08/17/2019 15:11:00 019 23:59:59 CLS Outpatient MECHE FRITZ MD Via [facility] RAD DATING [id number] 01/07/2018 05:41:00 018 19:03:00 DIS Inpatient MECHE FRITZ MD [facility] LDRP INDUCTION [id number] 10/23/2017 09:30:00 018 23:59:59 CLS Outpatient MECHE FRITZ MD [facility] RAD FU US [id number] 09/11/2017 10:07:00 017 23:59:59 CLS Outpatient MECHE FRITZ MD Via [facility] FIRST SCAN DATE AND WARREN VEY [id number] 12/23/2015 18:41:00 016 13:40:00 DIS Inpatient MECHE FRITZ MD Via [facility] LDRP INDUCTION [id number] 09/14/2015 12:09:00 015 23:59:59 CLS Outpatient MECHE FRITZ MD Via [facility] RAD SURVEY [id number] 07/18/2015 13:32:00 015 23:59:59 CLS Outpatient MECHE FRITZ MD Via [facility] RAD DATING [id number] 03/19/2020 06:00:00 P HAWK FRITZ MD, MECHE CHAMPAGNE
--- OUTSIDE RECORDS SUMMARY | 2020-03-19 06:17 | XMS REPORT ---
Author Author Leanne Wells [facility] Address [address] [place] [address] Care Team Providers Care Fifth Grade Teacher Name Role Phone EDUIN Wells Unavailable PROBLEMS Type Condition ICD9-CM Code WVQ41-LU Code Onset Dates Condition S tatus SNOMED Code Problem Urinary tract infection, site not specified 599.0 Active 91581506 Problem Acute maxillary sinusitis 461.0 Acti ve 05895638 Problem Contact with or exposure to venereal diseases V01.6 Active 746942816 Problem Abdominal pain, unspecified site 789.00 Active 71866278 Problem Diarrhea 787.91 Active 13148707 ALLERGIES No Information ENCOUNTERS Encounter Location Date Diagnosis [facility] [address] [place] [id number] [place] [address], [place] [id number] Apr, [place] [address] [place] [id number] [place] [address], [place] [id number] Mar, Chlamydia contact Z20.2 and Acute vagini tis N76.0 [facility] [address] [place] [id number] [place] [address], [place] [id number] Jan, Sore throat J02.9 and Fever, unspecified fever cause R50.9 [facility] [address] [facility] [id number] [address] [place] [phone] Jan, [facility] [address] [facility] [id number] [address] [place] [phone] Jan, [place] [id number] [place] [address], [place] [id number] Dec, [facility] [address] [facility] [id number] [address] [place] [phone] Dec, [place] [id number] [place] [address], [place] [id number] Nov, [facility] [address] [id number] [address] [place] [phone] Nov, [facility] [address] [id number] [address] [place] [phone] Jul, [facility] [address] [id number] [place] [id number] Jun, [facility] [address] [id number] [address] [place] [phone] Jun, [facility] [address] [id number] [address] [place] [phone] Apr, [facility] [address] [id number] [address] [place] [phone] Apr, [facility] [address] [id number] [place] [id number] Apr, [facility] [address] [id number] [place] [id number] Apr, [facility] [address] [id number] [address] [place] [phone] Apr, [facility] [address] [id number] [address] [place] [phone] Apr, IMMUNIZATIONS No Known Immunizations SOCIAL HISTORY Never Assessed REASON FOR VISIT PLAN OF CARE VITAL SIGNS Height 62 in 2014-11-23 Weight 116.3 lbs 2014-11-23 Temperature 98.5 degrees Fahrenheit 2014-11-23 Heart Rate 72 bpm 2014-11-23 Respiratory Rate 16 2014-11-23 Blood pressure systolic 120 mmHg 2014-11-23 Blood pressure diastolic 70 mmHg 2014-11-23 MEDICATIONS Unknown Medications RESULTS No Results PROCEDURES No Known procedures INSTRUCTIONS MEDICATIONS ADMINISTERED No Known Medications MEDICAL (GENERAL) HISTORY Type Description Date Surgical History BMT
--- OUTSIDE RECORDS SUMMARY | 2020-03-19 06:17 | XMS REPORT ---
Author Author Leanne MCKINNEY [facility] Address [address] [place] [address] Care Team Providers Care Infection Prevention Specialist Name Role Phone SONJA MCKINNEY Unavailable PROBLEMS Type Condition ICD9-CM Code [id number] Code Onset Dates Condition S tatus SNOMED Code Problem Acute maxillary sinusitis 461.0 Acti ve 99755916 Problem Urinary tract infection, site not specified 599.0 Active 24318611 Problem Contact with or exposure to venereal diseases V01.6 Active 674352109 Problem Diarrhea 787.91 Active 92299931 Problem Abdominal pain, unspecified site 789.00 Active 91551924 ALLERGIES No Known Allergies ENCOUNTERS Encounter Location Date Diagnosis [place] [id number] [place] [address], [place] [id number] Apr, [place] [id number] [place] [address], [place] [id number] Mar, Chlamydia contact Z20.2 and Acute vagini tis N76.0 [place] [id number] [place] [address], [place] [id number] Jan, Sore throat J02.9 and Fever, unspecified fever cause R50.9 [facility] [address] [place] [id number] [place] [phone] Jan, [facility] [address] [place] [id number] [address] [place] [phone] Jan, [facility] [address] [place] [id number] [place] [address], [place] [id number] Dec, [facility] [address] [place] [id number] [address] [place] [phone] Dec, [place] [id number] [place] [address], [place] [id number] Nov, [facility] [address] [id number] [address] [place] [phone] Nov, [facility] [address] [id number] [address] [place] [phone] Jul, [facility] [address] [id number] [place] [id number] Jun, [facility] [address] [id number] [address] [place] [phone] Jun, [facility] [address] [id number] [address] [place] [phone] Apr, [facility] [address] [id number] [address] [place] [phone] Apr, [facility] [address] [id number] [place] [id number] Apr, [facility] [address] [id number] [place] [id number] Apr, [facility] [address] [id number] [address] [place] [phone] Apr, [facility] [address] [id number] [address] [place] [phone] Apr, IMMUNIZATIONS No Known Immunizations SOCIAL HISTORY Never Assessed REASON FOR VISIT STD CHECK, partner tested positive for chylamida Shilpa RN PLAN OF CARE Activity Details Follow Up prn Reason: VITAL SIGNS Height 62 in 2017-03-30 Weight 119.8 lbs 2017-03-30 Temperature 99.0 degrees Fahrenheit 2017-03-30 Heart Rate 94 bpm 2017-03-30 Respiratory Rate 18 2017-03-30 BMI 21.91 kg/m2 2017-03-30 Blood pressure systolic 100 mmHg 2017-03-30 Blood pressure diastolic 60 mmHg 2017-03-30 MEDICATIONS Medication Instructions Dosage Frequency Start Date End Date Duration S jitendraus Metronidazole 500 mg Orally Twice a day 1 tablet 12h 26 Sukhi, 20 17 3 Apr, 2017 07 days Active RESULTS Name Result Date Reference Range TRICHOMONAS (IN HOUSE) 2017-03-30 TRICHOMONAS negative Control positive Lot # [id number] Exp date 02/19 BACTERIAL VAGINOSIS (IN HOUSE) 2017-03-30 RESULTS positive Control positive Lot # [id number] Exp date 11/24 GC/CHLAM URINE (STATE) 2017-03-30 CHLAMYDIA GC PROCEDURES Procedure Date Ordered Result Body Site LAB NOT BILLED BY [facility] March 30, 2017 No Charge March 30, 2017 CASTILLO VAG, DNA, DIR PROBE March 30, 2017 INSTRUCTIONS MEDICATIONS ADMINISTERED No Known Medications MEDICAL (GENERAL) HISTORY Type Description Date Surgical History BMT
--- OUTSIDE RECORDS SUMMARY | 2020-03-19 06:17 | XMS REPORT ---
Author Author Leanne Contreras Doctor Organization [facility] Address Unknown Phone Unavailable Care Team Providers Care Oven Tender Name Role Phone Migration, Doctor Unavailable Unavailable PROBLEMS Type Condition ICD9-CM Code SGN82-RE Code Onset Dates Condition S tatus SNOMED Code Problem Urinary tract infection, site not specified 599.0 Active 68156707 Problem Acute maxillary sinusitis 461.0 Acti ve 99923270 Problem Contact with or exposure to venereal diseases V01.6 Active 542142938 Problem Abdominal pain, unspecified site 789.00 Active 98205382 Problem Diarrhea 787.91 Active 84903258 ALLERGIES No Information ENCOUNTERS Encounter Location Date Diagnosis [facility] [id number] [place] [id number] Apr, [facility] [id number] [place] [address], [place] [id number] Mar, Chlamydia contact Z20.2 and Acute vagini tis N76.0 [facility] [id number] [place] [address], [place] [id number] Jan, Sore throat J02.9 and Fever, unspecified fever cause R50.9 [facility] [address] [place] [address] [id number] [place] [phone] Jan, [facility] [address] [facility] [id number] [address] [place] [phone] Jan, [facility] [address] [id number] [place] [id number] Dec, [facility] [address] [place] [id number] [place] [phone] Dec, [facility] [address] [id number] [place] [id number] Nov, [facility] [address] [place] [id number] [place] [phone] Nov, [facility] [address] [facility] [id number] [address] [place] [phone] Jul, [facility] [address] [facility] [id number] [place], [place] [id number] Jun, [facility] [address] [facility] [id number] [address] [place] [phone] Jun, [facility] [address] [facility] [id number] [address] [place] [phone] Apr, [facility] [address] [facility] [id number] [address] [place] [phone] Apr, [facility] [address] [facility] [id number] [place], [place] [id number] Apr, [facility] [address] [facility] [id number] [place], S [id number] Apr, [facility] [address] [facility] [id number] [address] [place] [id number] Apr, [facility] [address] [facility] [id number] [address] [place] [id number] Apr, IMMUNIZATIONS No Known Immunizations SOCIAL HISTORY Never Assessed REASON FOR VISIT PLAN OF CARE VITAL SIGNS MEDICATIONS Unknown Medications RESULTS No Results PROCEDURES No Known procedures INSTRUCTIONS MEDICATIONS ADMINISTERED No Known Medications MEDICAL (GENERAL) HISTORY Type Description Date Surgical History BMT
--- OUTSIDE RECORDS SUMMARY | 2020-03-19 06:17 | XMS REPORT ---
Author Author Leanne Contreras Doctor Organization [facility] Address Unknown Phone Unavailable Care Team Providers Care Marketing Content Specialist Name Role Phone Migration, Doctor Unavailable Unavailable PROBLEMS Type Condition ICD9-CM Code NRO36-CJ Code Onset Dates Condition S tatus SNOMED Code Problem Urinary tract infection, site not specified 599.0 Active 70875128 Problem Acute maxillary sinusitis 461.0 Acti ve 76430708 Problem Contact with or exposure to venereal diseases V01.6 Active 236200670 Problem Abdominal pain, unspecified site 789.00 Active 10700410 Problem Diarrhea 787.91 Active 15915618 ALLERGIES No Information ENCOUNTERS Encounter Location Date Diagnosis [facility] [id number] [place] [id number] Apr, [facility] [id number] [place] [address], [place] [id number] Mar, Chlamydia contact Z20.2 and Acute vagini tis N76.0 [facility] [id number] [place] [address], [place] [id number] Jan, Sore throat J02.9 and Fever, unspecified fever cause R50.9 [facility] [address] [id number] [address] [place] [phone] Jan, [facility] [address] [facility] [id number] [address] [place] [phone] Jan, [facility] [address] [id number] [place] [id number] Dec, [facility] [address] [id number] [address] [place] [phone] Dec, [facility] [address] [id number] [place] [id number] Nov, [facility] [address] [id number] [address] [place] [phone] Nov, [facility] [address] [facility] [id number] [address] [place] [phone] Jul, [facility] [address] [facility] [id number] [place], S [phone] Jun, [facility] [address] [facility] [id number] [address] [place] [phone] Jun, [facility] [address] [facility] [id number] [address] [place] [phone] Apr, [facility] [address] [facility] [id number] [address] [place] [phone] Apr, [facility] [address] [facility] [address] [id number] [place], S [phone] Apr, [facility] [address] [facility] [id number] [place], S [phone] Apr, [facility] [address] [facility] [id number] [address] [place] [phone] Apr, [facility] [address] [facility] [id number] [address] [place] [phone] Apr, IMMUNIZATIONS No Known Immunizations SOCIAL HISTORY Never Assessed REASON FOR VISIT [facility] [place] CARE VITAL SIGNS MEDICATIONS Unknown Medications RESULTS No Results PROCEDURES No Known procedures INSTRUCTIONS MEDICATIONS ADMINISTERED No Known Medications MEDICAL (GENERAL) HISTORY Type Description Date Surgical History BMT
--- OUTSIDE RECORDS SUMMARY | 2020-03-19 06:17 | XMS REPORT ---
Author Author [employer] bid manager [facility] [employer] [facility] [employer] Address [address] [address] Care Team Providers Care Hog Scraper Name Role Phone MECHE FRITZ Unavailable Migration, Doctor Unavailable Unavailable Migration, Doctor Unavailable Unavailable Migration, Doctor Unavailable Unavailable Migration, Doctor Unavailable Unavailable EDUIN Wells Unavailable EDUIN Wells Unavailable EDUIN Wells Unavailable EDUIN Wells Unavailable MECHE FRITZ MD Unavailable Unavailable MECHE FRITZ MD Unavailable Unavailable Unavailable Unavailable Allergies Normalized Allergy Reported Date of Reaction(s) Care Provider Facility Allergy Type classification allergen Allergy Onset DA (1 source.) Unclassified No Known Drug 07-12-2008 - no inform ation Erika FARLEY Allergies (20719) Medications The data below is from unstructured sources Unknown Medications Unknown Medications Unknown Medications Unknown Medications Unknown Medications Unknown Medications Unknown Medications Unknown Medications Unknown Medications Unknown Medications Unknown Medications Unknown Medications No Known Medications No Known Medications No Known Medications No Known Medications No Known Medications No Known Medications No Known Medications No Known Medications No Known Medications No Known Medications No Known Medications No Known Medications Unknown Medications No Known Medications Problems Active Problems Problem Normalized Date Last Normalized Normalized Provider Fa cility Classification Problem(s) Recorded Problem Problem Sta tus Duration Residual 22 weeks Episodic Active CORNELL FARLEY Via codes; gestation of [facility] unclassified [facility] - (2 sources.) [place] ([address]) Residual 28 weeks Episodic Active CORNELL FARLEY Via codes; gestation of [facility] unclassified Hospital - (3 sources.) [place] (00825) Residual 39 weeks Episodic Active CORNELL FARLEY Via codes; gestation of [facility] unclassified Hospital - (4 sources.) [place] ([address]2872) Residual 8 weeks Episodic Active CORNELL FARLEY Via codes; [facility] - (3 sources.) [place] ([address]) Other Encounter for Episodic Active CORNELL FARLEY Via screening for [facility] suspected screening of Hospital - conditions mother [place] (not mental (18192) disorders or infectious disease) (5 sources.) OB-related Other Episodic Active CORNELL FARLEY Via trauma to specified [facility] perineum and trauma to Hospital - vulva (5 perineum and [place] sources.) vulva (06472) Other Single live Episodic Active CORNELL FARLEY V ia and [facility] delivery Translations: Hospital - including [ ENCOUNTER [place] normal (21 FOR FULL-TERM (43331) sources.) UNCOMPLICATED DE, SINGLE LIVE , ENCNTR FOR SUPRVSN OF NORMAL , , ENCNTR FOR SUPRVSN OF NORMAL PREG, UNSP,, ENCNTR FOR SUPRVSN OF NORMAL PREG, UNSP,, SINGLE LIVE ] Umbilical cord Velamentous Episodic Active CORNELL FARLEY Via complication insertion of [facility] (6 sources.) umbilical Hospital - cord, third [place] trimester ([address]419) Past or Other Problems Problem Normalized Date Last Normalized Normalized Provider Fa cility Classification Problem(s) Recorded Problem Problem Sta tus Duration NEGATED 28 weeks no information no information MECHE FRITZ , Not Available no gestation of MD (11763) information (14 sources.) Translations: [ 39 WEEKS GESTATION OF , 22 WEEKS GESTATION OF ] Procedures Procedure Normalized Procedure Procedure Result Performer Facility Date 01-07-2018 DELIVERY OF PRODUCTS no information no name [facility] OF [facility], [facility] (30858) 12-24-2015 DELIVERY OF PRODUCTS no information no name [facility] NEGATED DELIVERY OF PRODUCTS no information no name no information [facility] 01-07-2018 DRAINAGE OF AMNIOTIC no information no name [facility] [place] [place], TH[place]AP FROM [facility] (70723) DRAINAGE OF AMNIOTIC no information no name no inform ation [place], [facility]ERAP FROM [facility] 12-24-2015 INTRODUCE OF OTH no information no name [facility] THERAP SUBST INTO [facility] R (11909) INTRODUCE OF OTH no information no name no informatio n THERAP SUBST INTO [facility] R 12-24-2015 REPAIR VULVA, EXTERNAL no information no name [facility] APPROACH [facility] (60903) REPAIR VULVA, EXTERNAL no information no name no info rmation APPROACH Immunizations The data below is from unstructured sources No Known Immunizations No Known Immunizations No Known Immunizations No Known Immunizations No Known Immunizations No Known Immunizations No Known Immunizations No Known Immunizations No Known Immunizations No Known Immunizations No Known Immunizations No Known Immunizations No Known Immunizations No Known Immunizations No Known Immunizations Results The data below is from unstructured sources No Results No Results No Results No Results No Results No Results No Results No Results No Results No Results No Results No Results No Results No Results No Results Vital Signs The data below is from unstructured sources Vital Response Date/Time Temperature (Fahrenheit) 97.8 degree s F (97.6 - 99.5) 12/25/2015 12:00pm Temperature (Calculated Celsius) 36. 01496 degrees C (36.4 - 37.5) 12/25/2015 12:00pm Temperature Source Tympanic 12/25/2015 12:00pm Pulse Rate (adult) 74 bpm (60 - 90) 12/25/2015 12:00pm Respiratory Rate 18 bpm (12 - 24) 12/25/2015 12:00pm O2 Sat by Pulse Oximetry 97 % (88 - 100) 12/25/2015 12:00pm Blood Pressure 94/64 mm Hg 12/25/2015 12:00pm Blood Pressure Mean 74 mm Hg 12/25/2015 12:00pm Pain Pain Intensity 0 2015 12:00pm Height (Feet) 5 feet 6:55pm Height (Inches) 1.00 inches 12/23/2015 6:55pm Height (Calculated Centimeters) 154. 321621 cm 12/23/2015 6:55pm Weight (Pounds) 145 pounds 12/23/2015 6:55pm Weight (Ounces) 2.0 oz 0 12/23/2015 6:55pm Weight (Calculated Grams) 69755.593 gm 12/23/2015 6:55pm Weight (Calculated Kilograms) 65.827 593 kilograms 12/23/2015 6:55pm Calculated BMI 27.39 6:55pm Interventions No Information Plan of Treatment The data below is from unstructured sources Discharge Date 12/25/15 1:40pm Disposition 01 HOME, SELF-CARE Instructions/Education Provided VAGI NAL DELIVERY DISCHARGE Forms Provided PDI Prescriptions See Medication Section Care Plan and Goals See Discharge In structions Section Goals No Information Social History No Information Functional Status The data below is from unstructured sources Query Response Date Frank rded Patient Orientation Person Place Time Situation Normal For Age December 25, 2015 7:05pm Mental Status No Information Encounters Encounter Normalized Encounter Encounter Diagnosis Care Provi jerzy Organization Date Type 01-07-2018 Evaluation and no information no name no organ ization name - management of 01-08-2018 inpatient 01-07-2018 Evaluation and no information no name no organ ization name - management of 01-08-2018 inpatient 12-23-2015 Evaluation and no information no name no organ ization name - management of 12-25-2015 inpatient 01-07-2018 Patient encounter no information no name no or ganization name - 01-08-2018 10-23-2017 Patient encounter no information no name no or ganization name NEGATED Patient encounter no information no name no or ganization name 09-11-2017 09-14-2015 Patient encounter no information no name no or ganization name 07-18-2015 Patient encounter no information no name no or ganization name 11-07-2019 Patient encounter no information no name no or ganization name procedure 08-17-2019 Patient encounter no information no name no or ganization name procedure 10-23-2017 Patient encounter no information no name no or ganization name procedure 09-11-2017 Patient encounter no information no name no or ganization name procedure 09-14-2015 Patient encounter no information no name no or ganization name procedure 07-18-2015 Patient encounter no information no name no or ganization name procedure Medical Equipment No Information Payers No Information Advance Directives Directive Response Recor ded Date/Time Advance Directives No 7:46pm Health Care Power of Regional Planner No 12/23/15 7:46pm Organ Donor No 12/23/15 7:46pm Resuscitation Status Full Code 12/23/15 7:46pm Discharge Instructions Patient Instructions Physician Instructions New, Converted or Re-Newed RX: RX on Chart Additional Follow Up: Yes (with Dr. Fritz in 6 weeks.) Activity: Activity as Tolerated Driving Instructions: You May Drive NO SMOKING: NO SMOKING Nothing Inside Vagina: No Douching, No [place] (for six weeks.), No Tampons Discharge Diet: Regular Diet Return to The Hospital For: Fever, abnormal vaginal DC or severe pain Symptoms to Report to DrPatti: Bleeding Excessive, Fever Over 101 Degrees F, Urination Difficulty Additional Source Comments This clinical document has been generated using [employer] software that has been certified by the Office of the National Coordinator for Health Information Technology (ONC 15.99.04.3023.Diam.31.00.0.627685) and the National Committee for Measurement Supervisor (NCQA, as an eMeasure certified technology). FOR RECORDS PERTAINING TO PATIENTS WHO ARE OR HAVE BEEN ENROLLED IN A CHEMICAL D EPENDENCY/SUBSTANCE ABUSE PROGRAM, SOME INFORMATION MAY BE OMITTED. This clinica l summary was aggregated from multiple sources. Caution should be exercised in using it in the provision of clinical care. This summary normalizes information from multiple sources, and as a consequence, information in this document may ma terially change the coding, format and clinical context of patient data. In deloris tion, data may be omitted in some cases. CLINICAL DECISIONS SHOULD BE BASED ON T HE PRIMARY CLINICAL RECORDS. [employer] provides no warranty or guara ntee of the accuracy or completeness of information in this document.The followi ng information is based on time limited clinical information UNRECOGNIZED CONTENT PROVIDED BELOW FOR UNRECOGNIZED SECTION REASON FOR VISIT [id number] UNRECOGNIZED CONTENT PROVIDED BELOW FOR UNRECOGNIZED SECTION MEDICAL (GENERAL) HISTORY Type Description Date Surgical History BMT
--- OUTSIDE RECORDS SUMMARY | 2020-03-19 06:17 | XMS REPORT ---
Author Author Leanne Contreras Doctor Organization [facility] Address Unknown Phone Unavailable Care Team Providers Care Clinical Programmer Name Role Phone Migration, Doctor Unavailable Unavailable PROBLEMS Type Condition ICD9-CM Code QLM36-TF Code Onset Dates Condition S tatus SNOMED Code Problem Urinary tract infection, site not specified 599.0 Active 44434043 Problem Acute maxillary sinusitis 461.0 Acti ve 83497126 Problem Contact with or exposure to venereal diseases V01.6 Active 460456514 Problem Abdominal pain, unspecified site 789.00 Active 77205146 Problem Diarrhea 787.91 Active 36633098 ALLERGIES No Information ENCOUNTERS Encounter Location Date Diagnosis [facility] [id number] [place] [id number] Apr, [facility] [id number] [place] [address], [place] [id number] Mar, Chlamydia contact Z20.2 and Acute vagini tis N76.0 [facility] [id number] [place] [address], [place] [id number] Jan, Sore throat J02.9 and Fever, unspecified fever cause R50.9 [facility] [address] [id number] [address] [place] [phone] Jan, [facility] [address] [facility] [id number] [address] [place] [phone] Jan, [facility] [address] [id number] [place] [phone] Dec, [facility] [address] [id number] [address] [place] [phone] Dec, [facility] [address] [id number] [place] [id number] Nov, [facility] [address] [id number] [address] [place] [phone] Nov, [facility] [address] [id number] [address] [place] [phone] Jul, [facility] [address] [id number] [place], S [id number] Jun, [facility] [address] [id number] [address] [place] [phone] Jun, [facility] [address] [id number] [address] [place] [phone] Apr, [facility] [address] [id number] [address] [place] [phone] Apr, [facility] [address] [id number] [place] [phone] Apr, [facility] [address] [id number] [place] [id number] Apr, [facility] [address] [id number] [address] [place] [phone] Apr, [facility] [address] [id number] [address] [place] [phone] Apr, IMMUNIZATIONS No Known Immunizations SOCIAL HISTORY Never Assessed REASON FOR VISIT [facility] [place] PLAN OF CARE VITAL SIGNS MEDICATIONS Medication Instructions Dosage Frequency Start Date End Date Duration S tatus Bactrim DS 800-160 mg 1 tablet by Oral route 2 times p er day for 7 day(s) Jun, Active Bentyl 20 mg 1 tablet by Oral route every 6 hours PRN Apr, Active Augmentin 875-125 mg 1 tablet by Oral route 2 times pe r day for 14 day(s) Nov, Active Pyridium 100 mg 1 tablet by Oral route 3 times per day for 3 day(s) Jun, Active RESULTS No Results PROCEDURES No Known procedures INSTRUCTIONS MEDICATIONS ADMINISTERED No Known Medications MEDICAL (GENERAL) HISTORY Type Description Date Surgical History BMT
--- OUTSIDE RECORDS SUMMARY | 2020-03-19 06:17 | XMS REPORT ---
Author Author Leanne Wells [facility] Address [address] [place] [address] Care Team Providers Care Vehicle Glass Technician Name Role Phone EDUIN Wells Unavailable PROBLEMS Type Condition ICD9-CM Code QBO58-RV Code Onset Dates Condition S tatus SNOMED Code Problem Urinary tract infection, site not specified 599.0 Active 00289564 Problem Acute maxillary sinusitis 461.0 Acti ve 56503365 Problem Contact with or exposure to venereal diseases V01.6 Active 163809858 Problem Abdominal pain, unspecified site 789.00 Active 48529782 Problem Diarrhea 787.91 Active 13387111 ALLERGIES No Information ENCOUNTERS Encounter Location Date Diagnosis [address] [id number] [phone] Aug, [id number] [place] [address], S [phone] Apr, [address], S [id number] Mar, Chlamydia contact Z20.2 and Acute vagini tis N76.0 [id number] [place] [address], S [id number] Jan, Sore throat J02.9 and Fever, unspecified fever cause R50.9 [facility] [address] [id number] [address] [place] [phone] Jan, [facility] [address] [id number] [address] [place] [phone] Jan, [facility] [id number] [place] [address], S [id number] Dec, [facility] [address] [phone] Dec, [facility] [address] [id number] [place] [id number] Nov, [facility] [address] [id number] [address] [place] [phone] Nov, [facility] [address] [id number] [address] [place] [phone] Jul, [facility] [address] [id number] [place] [id number] Jun, [facility] [address] [id number] [address] [place] [phone] Jun, [facility] [address] [id number] [address] [place] [phone] Apr, [facility] [address] [facility] [id number] [address] [place] [phone] Apr, [facility] [address] [id number] [place] [phone] Apr, [facility] [address] [id number] [place] [id number] Apr, [facility] [address] [facility] [id number] [address] [place] [phone] Apr, [facility] [address] [id number] [address] [place] [phone] Apr, IMMUNIZATIONS No Known Immunizations SOCIAL HISTORY Never Assessed REASON FOR VISIT PLAN OF CARE VITAL SIGNS MEDICATIONS Unknown Medications RESULTS No Results PROCEDURES No Known procedures INSTRUCTIONS MEDICATIONS ADMINISTERED No Known Medications MEDICAL (GENERAL) HISTORY Type Description Date Surgical History BMT
--- NOTE | 2020-03-19 06:53 | History & Physical-OB ---
OB - Chief Complaint & HPI Date/Time Date of Admission: Date of Admission: Mar 19, 2020 at 06:02 Date seen by a Provider: Mar 19, 2020 Time Seen by a Provider: 06:40 Chief Complaint/History OB-Reason for Admission/Chief: Induction of Labor Hx : 4 Hx Para: 3 Expected Date of Delivery: Mar 23, 2020 Gestational Age in Weeks: 39 Gestational Age in Days: 3 Admission Nurse Assessment Rev: Yes History of Labs GBS negative Allergies and Home Medications Allergies Coded Allergies: No Known Drug Allergies (Verified Allergy, Unknown, 07/12/08) Home Medications Ibuprofen 600 Mg Tablet, 600 MG PO Q6H Prescribed by: MECHE FRITZ on 12/25/15 0742 Patient Home Medication List Home Medication List Reviewed: Yes OB - History Hx of Present Care: Yes Ultrasounds: Normal mid trimester US Obstetrical Complications: None Medical Complications: None Obstetrical History Hx Termination: No Hx Multiple Gestation: No Hx Stillbirth: No Hx Complication: No Hx Induced Hypertens: No Hx Maternal Gestational Diabet: No Delivery History Hx Dystocia: No Hx Large For Gestational Age I: No Hx Small for Gestational Age I: No Hx Section: No Hx Vaginal Delivery Post C-Sec: No Hx Blood Disorders: No Adverse Rxn to Tranfusion: No Patient Past Medical History No chronic medical problems Immunizations Hepatitis A: No Hepatitis B: No Tetanus Booster (TDap): Unknown OB - Admission Exam Physical Exam Vitals: Vital Signs 03/19/20 06:22 Temp 36.2 Pulse 96 Resp 18 Pulse Ox 99 O2 Delivery Room Air HEENT: Moist Membranes Heart: Rhythm Normal Lungs: Clear Abdomen: Gravid Cervical Dilatation: 1cm Effacement: 50% Station: -3 Membranes: Intact Heart Rate: 140's Accelerations: Accelerations Present Decelerations: No Decelerations Short Term Variability: Present Group Home Variability: Average (6-25) Contractions on Admission: >10 Minutes Apart Intensity: Mild Velasco Scoring Tool (Modified) Dilation (cm): 1-2cm (1) Effacement (%): 31-51% (1) Descent/Station: -3 (0) Cervix Position: Middle/Mid-Position (1) Add 1 point for: Each previous vaginal delivery (1) Velasco Score: 6 OB - Assessment/Plan/Diagnosis Assessment Assessment: induction of labor Admission Dx 1. IUP at 39w3d Admission Status: Inpatient Order (span 2 midnights) Reason for Inpatient Admission: L&D Plan Plan: Induction Induction Method: AROM Other Plan -AROM -stadol for pain MECHE Berman MD Mar 19, 2020 06:53
[2020-03-19 07:00] LABS: BASOPHILS % (AUTO) 0 % (0-10); EOSINOPHILS # (AUTO) 0.1 10^3/uL (0.0-0.3); EOSINOPHILS % (AUTO) 1 % (0-10); HEMATOCRIT 30 % (35-52); HEMOGLOBIN 9.8 G/DL (11.5-16.0); LYMPHOCYTES # (AUTO) 2.8 X 10^3 (1.0-4.0); LYMPHOCYTES % (AUTO) 39 % (12-44); MEAN CORPUSCULAR HEMOGLOBIN 28 PG (25-34); MEAN CORPUSCULAR HGB CONC 33 G/DL (32-36); MEAN CORPUSCULAR VOLUME 86 FL (80-99); MEAN PLATELET VOLUME 10.9 FL (7.4-10.4); MONOCYTES # (AUTO) 0.9 X 10^3 (0.0-1.0); MONOCYTES % (AUTO) 13 % (0-12); NEUTROPHILS # (AUTO) 3.4 X 10^3 (1.8-7.8); NEUTROPHILS % (AUTO) 47 % (42-75); PLATELET COUNT 304 10^3/uL (130-400); RED CELL DISTRIBUTION WIDTH 14.3 % (10.0-14.5); WHITE BLOOD COUNT 7.2 10^3/uL (4.3-11.0)
[2020-03-19] MEDS ORDERED: OXYTOCIN PRE-MIX DRIP 500 ML IV SCH ×2 (07:10→14:14)
[2020-03-19] MEDS ORDERED: OXYTOCIN PRE-MIX DRIP 500 ML IV ONE (07:15)
[2020-03-19] MEDS: BUTORPHANOL INJ 2 MG/ML (STADOL) VIAL IV PRN ×2 (10:10→11:45)
[2020-03-19] MEDS ORDERED: MEPIVACAINE (CARBOCAINE) 2% 50 ML VIAL ONE (10:21)
[2020-03-19] MEDS ORDERED: MINERAL OIL CONCENTRATE 99.9% 15 ML UDC ONE (10:21)
--- NOTE | 2020-03-19 14:14 | OB Labor & Delivery Record ---
L&D History Date of Service Date of Service: Mar 19, 2020 History Expected Date of Delivery: Mar 23, 2020 Gestational Age in Weeks: 39 Hx : 4 Hx Para: 4 Complications Events: Routine care Operative Indications (Cesarea: N/A-Vaginal Delivery Intrapartal Events: None Other Complications GBS negative L&D Stage1 Stage One Onset of Labor - Date: Mar 19, 2020 Onset of Labor - Time: 06:43 Monitors and Tracing Monitor Mode: Internal Heart Rate: 110 Monitor Accelerations: Uniform Monitor Decelerations: None Station: -1 Grades 9 Thru 12 Visiting Teacher Variability: Average (6-10) Short Term Variability: Present Presentation: Vertex Vital Signs VS - Last 72 Hours, by Label 03/19/20 03/19/20 03/19/20 03/19/20 06:22 07:27 07:41 07:58 Temp 36.2 36.4 Pulse 96 74 67 70 Resp 18 18 18 18 B/P (MAP) 99/56 (70) 99/60 (73) 99/66 (77) Pulse Ox 99 O2 Delivery Room Air Room Air Room Air Room Air 03/19/20 03/19/20 03/19/20 03/19/20 08:13 08:28 08:42 08:57 Temp 36.7 Pulse 67 67 71 72 Resp 18 18 18 18 B/P (MAP) 101/59 (73) 102/60 (74) 94/58 (70) 86/52 (63) O2 Delivery Room Air Room Air Room Air Room Air 03/19/20 03/19/20 03/19/20 03/19/20 09:03 09:14 09:29 09:43 Temp 36.6 Pulse 73 75 76 72 Resp 18 18 18 18 B/P (MAP) 110/58 (75) 93/48 (63) 81/52 (62) 106/60 (75) O2 Delivery Room Air Room Air Room Air Room Air 03/19/20 03/19/20 03/19/20 03/19/20 09:58 10:06 10:13 10:29 Temp 36.6 Pulse 72 78 82 Resp 18 18 18 B/P (MAP) 106/56 (73) 102/61 (75) 112/71 (85) O2 Delivery Room Air Room Air Room Air 03/19/20 03/19/20 03/19/20 6/15/20 10:42 10:59 11:06 11:15 Temp 36.4 Pulse 69 72 74 Resp 18 18 18 B/P (MAP) 103/70 (81) 100/64 (76) 103/66 (78) O2 Delivery Room Air Room Air Room Air 03/19/20 03/19/20 03/19/20 03/19/20 11:27 11:43 11:58 12:12 Temp 36.2 Pulse 74 68 61 69 Resp 18 18 18 18 B/P (MAP) 102/65 (77) 106/58 (74) 117/72 (87) 107/58 (74) O2 Delivery Room Air Room Air Room Air Room Air 03/19/20 03/19/20 03/19/20 12:19 12:39 12:42 Temp 36.3 35.7 Pulse 88 Resp 20 B/P (MAP) 133/61 (85) O2 Delivery Room Air Signs of Distress by FHT Signs of Distress no Rupture of Membranes Spontaneous Ruture of Membrane: No Amniotic Membrane Rupture Time: 642 Amniotic Membrane Fluid Desc.: Clear L&D Stage2 Stage Two Stage II Date: Mar 19, 2020 Stage II Time: 13:00 Monitors and Tracing Monitor Mode: Internal Heart Rate: 110 Monitor Accelerations: Uniform Monitor Decelerations: None Grades 9 Thru 12 Visiting Teacher Variability: Average (6-10) Short Term Variability: Present Position: Left Occiput Anterior Presentation: Vertex Signs of Distress by FHT Signs of Distress no Cord Descript/Complications Cord Vessel Description: 3 Vessels Delivery Type Infant Delivery Method: Spontaneous Vaginal Anterior Shoulder: Left Episiotomy/Perineal Laceration Laceraction(s)/Extensions: No Condition of Delivery 1 minute Comment: 9 5 minute Comment: 9 Condition of Infant Condition of Infant: Living Exam: No Observed Abnormalities Resuscitation Resuscitation: N/A - Spontaneous Resp L&D Stage3 Stage Three Stage III Date: Mar 19, 2020 Stage III Time: 13:05 Pictocin Pitocin Administration mu/min: 6 Pitocin ml/hr: 6 Pitocin Administration Comment: 0824 PITOCIN INCREASED. Placenta Delivery Placenta Delivery: Spontaneous Delivery Summary Summary Estimated blood loss (mL): 150 Condition of Delivery Examined: Cervix Examined Post Hemorrhage: No Intervention Required none MECHE FRITZ MD Mar 19, 2020 14:14
[2020-03-19] MEDS ORDERED: BENZOCAINE/MENTHOL (DERMOPLAST) 60 ML CAN TP PRN (14:15)
[2020-03-19] MEDS ORDERED: TETANUS,DIPTH,PERTUSS P/F (BOOSTRIX) 0.5 ML VIAL IM ONE (14:15)
[2020-03-19] MEDS ORDERED: WITCH HAZEL(TUCKS) 40 EA JAR TOP PRN (14:15)
[2020-03-19] MEDS ORDERED: MEASLES,MUMPS,RUBELLA 1 EA INJ SQ ONE (14:15)
--- NOTE | 2020-03-19 15:39 | NUR ---
REFER TO LABOR FLOW SHEET.
[2020-03-19] MEDS: IBUPROFEN 600 MG (MOTRIN) TAB PO SCH ×2 (15:45→20:50)
--- NOTE | 2020-03-19 17:10 | NUR ---
PT UP TO THE BATHROOM WITH STANDBY ASSIST. BLOOD NOTED ON CHUX PAD AND PT'S GOWN AND FRONT PORTION OF VPAD SATURATED. PT TO TOILET, + VOID, + PERICARE. NEW GOWN ON. PT BACK TO BED. FUNDUS FIRM, MODERATE LOCHIA NOTED. DR. FRITZ NOTIFIED. NEW ORDER RECEIVED.
[2020-03-19] MEDS ORDERED: METHYLERGONOVINE 0.2 MG (MEHTERGINE) TAB PO ONE ×2 (17:22→17:30)
[2020-03-19] MEDS: ACETAMINOPHEN 500 MG TAB (TYLENOL) PO SCH ×2 (17:28→23:57)
--- NOTE | 2020-03-19 17:30 | NUR ---
PT IN BED. S/O @ THE BEDSIDE. MEDS GIVEN PO; SEE EMAR FOR FURTHER. VS OBTAINED. NO NEEDS VOICED. WILL CONTINUE TO MONITOR. CALL LIGHT WITHIN REACH.
--- NOTE | 2020-03-19 19:00 | NUR ---
PT IN BED, HOLDING . PT VOICES THAT SHE NEEDS TO GET UP TO VOID. LT/MODERATE VAG FLOW NOTED, WILL REPORT TO NEXT SHIFT AND CONTINUE TO MONITOR. NO NEEDS VOICED. S/O AT THE BEDSIDE. CALL LIGHT WITHIN REACH.
[2020-03-19] MEDS: DOCUSATE SODIUM 100 MG (COLACE) CAP PO SCH (20:50)
[2020-03-19] MEDS ORDERED: CATHETER FLUSH 10 ML SYR IV SCH (22:00)
[2020-03-20 03:54] VITALS: BP 114/79
[2020-03-20] MEDS: IBUPROFEN 600 MG (MOTRIN) TAB PO SCH ×2 (03:54→13:03)
[2020-03-20 05:48] LABS: BASOPHILS % (AUTO) 0 % (0-10); EOSINOPHILS # (AUTO) 0.1 10^3/uL (0.0-0.3); EOSINOPHILS % (AUTO) 1 % (0-10); HEMATOCRIT 30 % (35-52); HEMOGLOBIN 9.6 G/DL (11.5-16.0); LYMPHOCYTES % (AUTO) 24 % (12-44); MEAN CORPUSCULAR HEMOGLOBIN 28 PG (25-34); MEAN CORPUSCULAR HGB CONC 32 G/DL (32-36); MEAN CORPUSCULAR VOLUME 87 FL (80-99); MEAN PLATELET VOLUME 10.8 FL (7.4-10.4); MONOCYTES # (AUTO) 1.5 X 10^3 (0.0-1.0); MONOCYTES % (AUTO) 12 % (0-12); NEUTROPHILS # (AUTO) 7.8 X 10^3 (1.8-7.8); NEUTROPHILS % (AUTO) 63 % (42-75); PLATELET COUNT 281 10^3/uL (130-400); RED CELL DISTRIBUTION WIDTH 14.5 % (10.0-14.5); WHITE BLOOD COUNT 12.4 10^3/uL (4.3-11.0)
[2020-03-20] MEDS: ACETAMINOPHEN 500 MG TAB (TYLENOL) PO SCH ×2 (06:56→09:50)
--- NOTE | 2020-03-20 07:17 | Discharge Summary ---
Diagnosis/Chief Complaint Date of Admission Mar 19, 2020 at 06:02 Date of Discharge March 20, 2020 Discharge Date: Mar 20, 2020 Discharge Time: 15:00 Admission Diagnosis Admission Diagnosis 1. Intrauterine at 39 weeks 3 days gestation 2. Iron deficiency anemia Discharge Diagnosis 1. Intrauterine at 39 weeks 3 days gestation 2. Iron deficiency anemia Reason Hospital Visit 29-year-old 4 now term 4 who initially presented to labor and delivery during the morning of March 19, 2020 for induction of labor. Patient was with favorable cervix and was brought in during the morning of March 19 and underwent artificial rupture membranes. Her EDC is noted to be March 23, 2020. Her GBS status at 36 weeks gestation was noted to be negative. Discharge Summary-OBS Procedures 1. Spontaneous vaginal delivery Discharge Physical Examination Allergies: Coded Allergies: No Known Drug Allergies (Verified Allergy, Unknown, 07/12/08) Vitals & I&Os Vital Signs Date Time Temp Pulse Resp B/P (MAP) Pulse Ox O2 Delivery O2 Flow Rate FiO2 03/20/20 03:54 36.4 66 18 114/79 (91) 99 Room Air General Appearance: No Acute Distress Respiratory: Clear to Auscultation Cardiovascular: Regular Rate Abdominal: Soft (With uterus firm) Skin: No Rashes Neuro: Normal Speech Hospital Course Was the Problem List Reviewed?: Yes Patient was admitted during the morning of March 19 and underwent induction of labor with artificial rupture membranes. Fluid was noted to be clear. She required low-dose Pitocin augmentation to achieve adequate contraction pattern. She did not request epidural and had 2 doses of Stadol 1 mg during labor for pain control. She ultimately went on to completion and delivered at 1300 a term viable male. Following delivery patient underwent routine care orders. She had no complications during the remainder of stay other than having slight vaginal bleeding that was controlled with 1 dose of Methergine 0.2 mg by mouth. Her hemoglobin on admission was noted to be 9.8 and on the day after delivery 9.6. Patient was very stable and had no reports of lightheadedness. She tolerated regular diet and was ambulatory. Patient was ready for dismissal during the afternoon of March 20, 2020. Pending Labs Laboratory Tests 03/20/20 05:27: White Blood Count 12.4, Red Blood Count 3.46, Hemoglobin 9.6, Hematocrit 30, Mean Corpuscular Volume 87, Mean Corpuscular Hemoglobin 28, Mean Corpuscular Hemoglobin Concent 32, Red Cell Distribution Width 14.5, Platelet Count 281, Mean Platelet Volume 10.8, Neutrophils (%) (Auto) 63, Lymphocytes (%) (Auto) 24, Monocytes (%) (Auto) 12, Eosinophils (%) (Auto) 1, Basophils (%) (Auto) 0, Neutrophils # (Auto) 7.8, Lymphocytes # (Auto) 3.0, Monocytes # (Auto) 1.5, Eosinophils # (Auto) 0.1, Basophils # (Auto) 0.0 Discharge Instructions to patient/family Please see electronic discharge instructions given to patient. Discharge Medications Reviewed and agree with Discharge Medication list on patient's Discharge Instruction sheet Clinical Quality Measures DVT/VTE Risk/Contraindication: Risk Factor Score Per Nursin RFS Level Per Nursing on Admit: 1=Low/No VTE PPX MECHE FRITZ MD Mar 20, 2020 07:17
[2020-03-20] MEDS ORDERED: FERR325T18 PO (07:20)
--- NOTE | 2020-03-20 07:21 | Discharge Inst-Women's Service ---
Discharge Inst-Women's Serv Depart Medication/Instructions New, Converted or Re-Newed RX: Transmitted to Pharmacy ([facility]) Problems Reviewed?: Yes Consults/Follow Up Additional Follow Up: Yes (With Dr. Fritz in 6 weeks) Activity Activity: Activity as Tolerated Driving Instructions: No Driving for 1 Week Nothing Inside Vagina: No [place] (For 6 weeks) Diet Discharge Diet: Regular Diet Symptoms to Report to : Bleeding Excessive, Fever Over 101 Degrees F, Vaginal Discharge Foul For Any Problems or Questions: Contact Your Physician MECHE FRITZ MD Mar 20, 2020 07:21
--- NOTE | 2020-03-20 07:30 | NUR ---
Called into pt's room- up to BR, passed approx grapefruit sized clot. this RN viewed, will cont to monitor. FFu/1. denies lightheadedness with ambulation.
[2020-03-20 09:50] VITALS: BP 109/76
[2020-03-20] MEDS: DOCUSATE SODIUM 100 MG (COLACE) CAP PO SCH (09:50)
--- NOTE | 2020-03-20 09:50 | NUR ---
initial shift assessment completed, see interventions for further. POC reviewed- states understanding.
--- NOTE | 2020-03-20 16:05 | NUR ---
dismissal instructions given, verbalizes understanding. reviewed OTC Tylenol and Motrin dosage and administration schedule. instructed pt to call for follow up appointment with Dr. Eid. signature page signed, placed on chart.
--- NOTE | 2020-03-20 17:45 | NUR ---
pt ambulated to private vehicle with this RN, and s/o @ side. secured in rear facing car seat. pt stable with no sx's of distress noted.
== END 2020-03-20 17:45 | disposition home or self-care (01) | DRG 807 ==
LOC: LDRP 06:02
PROVIDERS: ADMIT Family Medicine; ATTEND Family Medicine
PROC: 10E0XZZ Delivery of Products of Conception, External Approach (ICD-10-PCS; principal; 2020-03-19)
PROC: 10907ZC Drainage of Amniotic Fluid, Therapeutic from Products of Conception, Via Natural or Artificial Opening (ICD-10-PCS; 2020-03-19)
DX: O99.02 Anemia complicating childbirth (principal); Z37.0 Single live birth; Z3A.39 39 weeks gestation of pregnancy; D50.9 Iron deficiency anemia, unspecified
CPT/HCPCS: 36415; 85025; 86850; 86900; 86901

== ENCOUNTER → 2022-09-18 | Outpatient (CLI) | payer MEDICAID ==
[~2022-09-18] MED LIST changes: -D5 LR IV SOLUTION 1,000 ML IV ONE; +FERR325T18 PO
[2022-09-18 11:51] LABS: BASOPHILS % (AUTO) 1 % (0-10); EOSINOPHILS # (AUTO) 0.1 10^3/uL (0.0-0.3); EOSINOPHILS % (AUTO) 1 % (0-10); HEMATOCRIT 39 % (35-52); HEMOGLOBIN 13.1 g/dL (11.5-16.0); LYMPHOCYTES # (AUTO) 2.3 10^3/uL (1.0-4.0); LYMPHOCYTES % (AUTO) 32 % (12-44); MEAN CORPUSCULAR HEMOGLOBIN 32 pg (25-34); MEAN CORPUSCULAR HGB CONC 34 g/dL (32-36); MEAN CORPUSCULAR VOLUME 94 fL (80-99); MEAN PLATELET VOLUME 10.1 fL (9.0-12.2); MONOCYTES # (AUTO) 0.6 10^3/uL (0.0-1.0); MONOCYTES % (AUTO) 8 % (0-12); NEUTROPHILS # (AUTO) 4.2 10^3/uL (1.8-7.8); NEUTROPHILS % (AUTO) 58 % (42-75); PLATELET COUNT 278 10^3/uL (130-400); WHITE BLOOD COUNT 7.2 10^3/uL (4.3-11.0)
[2022-09-18 12:00] LABS: ALBUMIN 4.6 GM/DL (3.2-4.5); CHLORIDE 105 MMOL/L (98-107); POTASSIUM 3.5 MMOL/L (3.6-5.0); SODIUM 137 MMOL/L (135-145)
[2022-09-18 12:01] LABS: CALCIUM 9.2 MG/DL (8.5-10.1)
[2022-09-18 12:02] LABS: TRIGLYCERIDES 53 MG/DL (<150); VLDL CHOLESTEROL 11 MG/DL (5-40)
[2022-09-18 12:03] LABS: GLUCOSE 88 MG/DL (70-105); TOTAL PROTEIN 7.4 GM/DL (6.4-8.2)
[2022-09-18 12:04] LABS: BILIRUBIN,TOTAL 0.8 MG/DL (0.1-1.0); CARBON DIOXIDE 23 MMOL/L (21-32)
[2022-09-18 12:06] LABS: ALKALINE PHOSPHATASE 35 U/L (40-136); CREATININE SERUM 0.82 MG/DL (0.60-1.30); GFR ESTIMATED 99
[2022-09-18 12:07] LABS: BUN/CREATININE RATIO 21; CHOLESTEROL 140 MG/DL (< 200)
[2022-09-18 12:08] LABS: HDL CHOLESTEROL 57 MG/DL (40-60)
[2022-09-18 12:09] LABS: ALANINE AMINOTRANSFERASE 11 U/L (0-55)
--- NOTE | 2022-09-18 12:57 | Diagnostic Imaging Report ---
EXAMINATION: Chest 2 view HISTORY: CHEST PAIN COMPARISON: None available. FINDINGS: Heart size and pulmonary vasculature are normal. The lungs are clear without consolidation, pleural effusion, or pneumothorax. The osseous structures are intact. IMPRESSION: 1. No acute radiographic abnormality in the chest. Dictated by: Dictated on workstation # [id number]
== END ==
LOC: RAD 11:09
PROVIDERS: ATTEND Family Medicine
DX: R07.9 Chest pain, unspecified (principal)
CPT/HCPCS: 36415; 71046; 80053; 80061; 84443; 85025; 93005